=== PATIENT | female | born 1970 | race Caucasian/White ===

== ENCOUNTER 2020-08-07 20:45 | Emergency (ER) | payer OTHER ==
[~2020-08-07] VITALS: Ht 167.6 cm; Wt 68.0 kg
[2020-08-07 20:51] VITALS: BP 144/88
[2020-08-07] MEDS ORDERED: PREDNISONE 20 M20 MG PO (21:04)
[2020-08-07] MEDS ORDERED: DOXYCYCLINE 10100 MG PO (21:04)
== END 2020-08-07 21:17 | disposition home or self-care (01) ==
LOC: ER 20:45
DX: L30.9 Dermatitis, unspecified (principal); I10 Essential (primary) hypertension

== ENCOUNTER 2020-08-09 13:33 | Emergency (ER) | payer OTHER ==
[~2020-08-09] VITALS: Ht 167.6 cm; Wt 70.3 kg
[~2020-08-09 13:33] MED LIST: DOXYCYCLINE 10100 MG PO; PREDNISONE 20 M20 MG PO
[2020-08-09 14:28] LABS: ABSOLUTE NEUTROPHILS 10.5 thou/uL (1.4-8.2); BASOPHILS 0.3 % (0.0-2.0); EOSINOPHILS 0.3 % (0.0-3.0); HEMATOCRIT 45.2 % (37.0-47.0); HEMOGLOBIN 15.8 gm/dL (12.0-15.0); LYMPHOCYTES 10.9 % (24.0-44.0); MCH 32.8 pg (26.0-34.0); MCV 93.7 fL (80.0-100.0); MONOCYTES 2.8 % (1.0-8.0); PLATELET COUNT 298 thou/uL (150-400); POLYS 85.7 % (36.0-66.0); RBC 4.83 mil/uL (4.20-5.00); RDW 13.4 % (10.5-14.5); WBC 12.2 thou/uL (4.0-11.0)
[2020-08-09 14:43] LABS: CREATININE 0.9 mg/dL (0.6-1.0); POTASSIUM 4.2 mmol/L (3.5-5.1)
[2020-08-09 14:51] LABS: ALBUMIN 3.9 g/dL (3.4-5.0); TOTAL BILIRUBIN 0.4 mg/dL (0.2-1.0); TOTAL PROTEIN 7.8 g/dL (6.4-8.2)
[2020-08-09] MEDS ORDERED: BACTRIM DS TAB1 EACH PO ×2 (15:19→15:28)
[2020-08-09] MEDS ORDERED: CEPHALEXIN500 MG PO ×2 (15:19→15:28)
[2020-08-09 16:15] VITALS: BP 160/93
== END 2020-08-09 16:14 | disposition home or self-care (01) ==
LOC: ER 13:33
PROVIDERS: Physician Assistant
DX: S80.862A Insect bite (nonvenomous), left lower leg, initial encounter (principal); L03.116 Cellulitis of left lower limb; I10 Essential (primary) hypertension; Z79.899 Other long term (current) drug therapy; W57.XXXA Bitten or stung by nonvenomous insect and other nonvenomous arthropods, initial encounter; Y93.89 Activity, other specified; Y92.89 Other specified places as the place of occurrence of the external cause; Y99.9 Unspecified external cause status

== ENCOUNTER 2020-10-02 17:16 | Emergency (ER) | payer OTHER ==
[~2020-10-02] VITALS: Ht 167.6 cm; Wt 72.6 kg
[~2020-10-02 17:16] MED LIST changes: +BACTRIM DS TAB1 EACH PO; +CEPHALEXIN500 MG PO
[2020-10-02 17:21] VITALS: BP 165/102
[2020-10-02] MEDS ORDERED: VISTARIL50 MG PO (18:11)
[2020-10-02] MEDS ORDERED: HYDROCORTISON28.4 G5 TOP (18:15)
== END 2020-10-02 18:33 | disposition home or self-care (01) ==
LOC: ER 17:16
DX: L23.9 Allergic contact dermatitis, unspecified cause (principal); I10 Essential (primary) hypertension; F17.210 Nicotine dependence, cigarettes, uncomplicated